=== PATIENT | female | born 1965 | race African-American/Black ===

== ENCOUNTER 2018-08-21 07:03 | Emergency (ER) | payer OTHER ==
[~2018-08-21] VITALS: Ht 175.3 cm; Wt 78.0 kg
[2018-08-21] MEDS ORDERED: ALBUTEROL (0.083%) 2.5MG/3ML NEB HHN STA (07:33)
[2018-08-21] MEDS ORDERED: METHYLPREDNISOLONE SOD SUCC 125 MG/2 ML VIAL IV STA (07:33)
[2018-08-21] MEDS ORDERED: IPRATROPIUM BROMIDE (0.02%) 0.5MG/2.5ML NEB HHN STA (07:33)
[2018-08-21 07:54] LABS: BASOPHILS % 1.2 % (0.0-2.0); EOSINOPHILS % 9.1 % (0.0-5.0); HEMATOCRIT. 39.1 % (36.0-48.0); HEMOGLOBIN. 13.3 g/dL (12.0-16.0); LYMPHOCYTES % 37.5 % (20.0-50.0); MEAN CORPUSCULAR HEMOGLOBIN 31.9 pg (28.0-32.0); MEAN CORPUSCULAR VOLUME 94.2 fL (81.0-99.0); MEAN PLATELET VOLUME 6.8 fl (7.4-10.4); MONOCYTES % 12.4 % (2.0-8.0); NEUTROPHILS % 39.8 % (40.0-76.0); PLATELET 226 x1000/uL (130-400); RED BLOOD CELL COUNT 4.16 mill/uL (4.2-5.4); RED CELL DISTRIBUTION WIDTH 13.8 % (11.6-14.6)
[2018-08-21 08:00] LABS: CHLORIDE 108 mEq/L (98-107)
[2018-08-21 11:26] VITALS: BP 137/84
== END 2018-08-21 11:27 | disposition home or self-care (01) ==
LOC: ER 07:03
DX: J45.901 Unspecified asthma with (acute) exacerbation (principal); I10 Essential (primary) hypertension; Z88.2 Allergy status to sulfonamides; Z88.6 Allergy status to analgesic agent; Z88.0 Allergy status to penicillin; Z88.5 Allergy status to narcotic agent; Z88.8 Allergy status to other drugs, medicaments and biological substances
CPT/HCPCS: 36415; 71045; 80053; 83880; 84484; 85025; 85379; 93005; 94640; 96374; 99284; J2930; J7611

== ENCOUNTER 2018-09-02 19:01 | Inpatient (IN) | payer OTHER ==
[~2018-09-02] VITALS: Ht 172.7 cm; Wt 111.1 kg
[2018-09-02 19:45] LABS: BASOPHILS % 1.1 % (0.0-2.0); EOSINOPHILS % 5.3 % (0.0-5.0); HEMATOCRIT. 44.4 % (36.0-48.0); HEMOGLOBIN. 15.1 g/dL (12.0-16.0); LYMPHOCYTES % 39.3 % (20.0-50.0); MEAN CORPUSCULAR HEMOGLOBIN 32.2 pg (28.0-32.0); MEAN CORPUSCULAR VOLUME 94.5 fL (81.0-99.0); MEAN PLATELET VOLUME 7.2 fl (7.4-10.4); MONOCYTES % 8.9 % (2.0-8.0); NEUTROPHILS % 45.4 % (40.0-76.0); PLATELET 290 x1000/uL (130-400)
[2018-09-02 19:49] LABS: CHLORIDE 107 mEq/L (98-107)
[2018-09-02 19:53] LABS: ETHANOL BLOOD < 10 mg/dL
[2018-09-02 19:56] LABS: LDL CHOLESTEROL 89 mg/dL (5-100)
[2018-09-02 20:13] LABS: CLARITY URINE CLEAR (CLEAR); COLOR URINE YELLOW (YELLOW); KETONES URINE NEGATIVE (NEGATIVE); LEUKOCYTE ESTERASE URINE NEGATIVE (NEGATIVE); NITRITE URINE NEGATIVE (NEGATIVE); OCCULT BLOOD URINE TRACE (NEGATIVE); PH URINE 8.5 (4.5-8.0); PROTEIN URINE NEGATIVE (NEGATIVE); SPECIFIC GRAVITY URINE 1.008 (1.005-1.030); UROBILINOGEN URINE 0.2 E.U./dL (0.2-1.0)
[2018-09-02 20:44] LABS: *AMPHETAMINES SCREEN URINE NEGATIVE (NEGATIVE); *BARBITURATES SCREEN URINE NEGATIVE (NEGATIVE); *BENZODIAZEPINES SCREEN URINE PRESUMTIVE POSITIVE (NEGATIVE); *COCAINE SCREEN URINE NEGATIVE (NEGATIVE)
[2018-09-02 20:45] LABS: CANNABINOID URINE SCREEN NEGATIVE (NEGATIVE); METHADONE URINE SCREEN NEGATIVE (NEGATIVE); OPIATES URINE SCREEN NEGATIVE (NEGATIVE); PHENCYCLIDINE URINE SCREEN NEGATIVE (NEGATIVE)
[2018-09-02] MEDS ORDERED: IOHEXOL-350 100 ML BOTTLE ONE (21:55)
[2018-09-03] VITALS: BP 139/78
[2018-09-03] MEDS ORDERED: DIAZ10TA4 PO (00:02)
[2018-09-03] MEDS ORDERED: LEVE1000 PO (00:03)
[2018-09-03] MEDS ORDERED: AMLO5TAB4 PO (00:04)
[2018-09-03] MEDS ORDERED: PHEN100C4 PO (00:04)
[2018-09-03] MEDS ORDERED: LAMO25TA4 PO (00:08)
[2018-09-03 00:32] VITALS: BP 139/78
[2018-09-03] MEDS ORDERED: METO1TAB26 PO (01:16)
[2018-09-03 04:00] VITALS: BP 130/78
[2018-09-03 08:00] VITALS: BP 132/85
[2018-09-03] MEDS ORDERED: METOPROLOL TARTRATE 50MG TABLET PO SCH (09:00)
[2018-09-03] MEDS ORDERED: AMLODIPINE 5MG TABLET PO SCH (09:00)
[2018-09-03] MEDS ORDERED: ASPIRIN 325MG EC TABLET PO SCH (09:00)
[2018-09-03] MEDS ORDERED: LEVETIRACETAM 500MG TABLET PO SCH (09:00)
[2018-09-03] MEDS: LAMOTRIGINE 25MG TABLET PO SCH ×2 (10:04→17:43)
[2018-09-03] MEDS: PHENYTOIN SODIUM EXTENDED 100MG CAPSULE PO SCH ×2 (10:05→17:43)
[2018-09-03] MEDS ORDERED: POTASSIUM CHLORIDE 20MEQ/PACKET PO SCH (10:30)
[2018-09-03] MEDS ORDERED: DEXTROSE 50% WATER 50ML SYRINGE IV PRN (10:30)
[2018-09-03] MEDS ORDERED: LORAZEPAM 2MG/ML CPJ IV SCH (10:30)
[2018-09-03] MEDS: BLOOD SUGAR DIAGNOSTIC STRIP TEST SCH ×2 (11:45→17:19)
[2018-09-03] MEDS: INSULIN LISPRO 100 UNITS/ML SUBCUT SCH ×2 (12:15→17:15)
[2018-09-03 16:00] VITALS: BP 130/65
[2018-09-03 17:55] VITALS: BP 130/65
[2018-09-03] MEDS ORDERED: ATORVASTATIN CALCIUM 40MG TABLET PO SCH (21:00)
== END 2018-09-03 18:15 | disposition home or self-care (01) | DRG 47 ==
LOC: ER 19:01 → 5WST 21:14 → EDBEDREQSVC 21:18 → EDBEDREQTM 21:18 → EDBEDREQ 21:18 → ENRESERV 22:17
PROVIDERS: ADMIT Internal Medicine; ATTEND Internal Medicine
DX: G45.9 Transient cerebral ischemic attack, unspecified (principal); I11.0 Hypertensive heart disease with heart failure; I50.9 Heart failure, unspecified; E11.9 Type 2 diabetes mellitus without complications; J44.9 Chronic obstructive pulmonary disease, unspecified; E66.9 Obesity, unspecified; E78.5 Hyperlipidemia, unspecified; G40.909 Epilepsy, unspecified, not intractable, without status epilepticus; Z86.73 Personal history of transient ischemic attack (TIA), and cerebral infarction without residual deficits; Z79.84 Long term (current) use of oral hypoglycemic drugs; Z88.0 Allergy status to penicillin; Z88.5 Allergy status to narcotic agent; Z88.6 Allergy status to analgesic agent; Z88.8 Allergy status to other drugs, medicaments and biological substances; Z68.37 Body mass index [BMI] 37.0-37.9, adult
CPT/HCPCS: 36415; 70496; 70498; 70551; 71045; 80305; 80320; 81025; 82962; 83721; 83880; 84484; 92610; 93005; 93880; 97162; 99285; J2060; Q9967; G0480